=== PATIENT | male | born 1985 | race Caucasian/White ===

== ENCOUNTER 2018-08-23 23:06 | Emergency (ER) | payer SELFPAY ==
[2018-08-24 00:04] LABS: Absolute Lymphocytes (CBC) 3.3 K/uL (0.7-4.9); Absolute Monocytes 0.8 K/uL (0.1-1.3); Absolute Neutrophil 5.4 K/uL (1.8-8.0); Basophils % 0.8 % (0-1.3); Eosinophils % 1.4 % (0-4.4); Hematocrit 45.8 % (39.6-49.0); Lymphocytes % 34.1 % (15.3-44.8); MPV 7.9 fL (7.6-11.3); Monocytes % 8.3 % (3.3-12.3); RBC Red Blood Cell Count 5.19 M/uL (4.33-5.43)
[2018-08-24] MEDS ORDERED: NA CHLORIDE 0.9% 1,000 ML ONE (00:04)
[2018-08-24 00:07] LABS: Protime INR 1.05
[2018-08-24 00:30] LABS: ALT/SGPT 59 U/L (12-78); AST/SGOT 24 U/L (15-37); Alkaline Phosphatase 85 U/L (45-117); BUN Blood Urea Nitrogen 15 mg/dL (7-18); Bicarbonate 23 mmol/L (21-32); Bilirubin Total 0.3 mg/dL (0.2-1.0); Glucose Level 81 mg/dL (74-106); Potassium 3.6 mmol/L (3.5-5.1); Protein, Total 7.4 g/dL (6.4-8.2); Sodium Level 141 mmol/L (136-145)
--- NOTE | 2018-08-24 00:41 | EDPHYS ---
Physician Documentation [facility] Name: Omar Lieberman Age: 33 yrs Sex: Male : 1985 Arrival Date: 08/23/2018 Time: 23:06 Bed 4 Private MD: ED Physician Jesus Alberto Chester HPI: 08/24 00:20 This 33 yrs old Male presents to ER via EMS with complaints of Anxiety. cm 00:20 The patient presents to the emergency department with anxiety. Onset: The cm symptoms/episode began/occurred 2 day(s) ago. Past psychiatric history: Prior diagnosis: depression, Psychiatric medications include: Klonipin. Associated signs and symptoms: Pertinent positives; anxiety. Severity of symptoms: At their worst the symptoms were mild in the emergency department the symptoms are unchanged. The patient has experienced similar episodes in the past, a few times. Historical: - Allergies: 08/23 23:18 No Known Allergies; lp1 - Home Meds: 23:18 Klonopin 2 mg Oral tab 1 tab 3 times per day [Active]; lisinopril 20 mg Oral tab 1 tab lp1 once daily [Active]; - PMHx: 23:18 Anxiety; Hypertension; lp1 - PSHx: 23:18 Knee surgery; lp1 - Immunization history:: Adult Immunizations up to date. - Social history:: Smoking status: Patient uses tobacco products, smokes one pack cigarettes per day. Patient uses street drugs, marijuana. - Ebola Screening: : No symptoms or risks identified at this time. - Family history:: not pertinent. ROS: 08/24 00:20 Constitutional: Negative for fever, chills, and weight loss, Eyes: Negative for injury, cm pain, redness, and discharge, ENT: Negative for injury, pain, and discharge, Neck: Negative for injury, pain, and swelling, Cardiovascular: Negative for chest pain, palpitations, and edema, Respiratory: Negative for shortness of breath, cough, wheezing, and pleuritic chest pain, Abdomen/GI: Negative for abdominal pain, nausea, vomiting, diarrhea, and constipation, Back: Negative for injury and pain, : Negative for injury, bleeding, discharge, and swelling, MS/Extremity: Negative for injury and deformity, Skin: Negative for injury, rash, and discoloration, Neuro: Negative for headache, weakness, numbness, tingling, and seizure, Allergy/Immunology: Negative for hives, rash, and allergies, Endocrine: Negative for neck swelling, polydipsia, polyuria, polyphagia, and marked weight changes, Hematologic/Lymphatic: Negative for swollen nodes, abnormal bleeding, and unusual bruising. Psych: Positive for anxiety. Exam: 00:20 Constitutional: This is a well developed, well nourished patient who is awake, alert, cm and in no acute distress. Head/Face: Normocephalic, atraumatic. Eyes: Pupils equal round and reactive to light, extra-ocular motions intact. Lids and lashes normal. Conjunctiva and sclera are non-icteric and not injected. Cornea within normal limits. Periorbital areas with no swelling, redness, or edema. ENT: Nares patent. No nasal discharge, no septal abnormalities noted. Tympanic membranes are normal and external auditory canals are clear. Oropharynx with no redness, swelling, or masses, exudates, or evidence of obstruction, uvula midline. Mucous membranes moist. Neck: Trachea midline, no thyromegaly or masses palpated, and no cervical lymphadenopathy. Supple, full range of motion without nuchal rigidity, or vertebral point tenderness. No Meningismus. Chest/axilla: Normal chest wall appearance and motion. Nontender with no deformity. No lesions are appreciated. Cardiovascular: Regular rate and rhythm with a normal S1 and S2. No gallops, murmurs, or rubs. Normal PMI, no JVD. No pulse deficits. Respiratory: Lungs have equal breath sounds bilaterally, clear to auscultation and percussion. No rales, rhonchi or wheezes noted. No increased work of breathing, no retractions or nasal flaring. Abdomen/GI: Soft, non-tender, with normal bowel sounds. No distension or tympany. No guarding or rebound. No evidence of tenderness throughout. Back: No spinal tenderness. No costovertebral tenderness. Full range of motion. Male : Normal genitalia with no discharge or lesions. Skin: Warm, dry with normal turgor. Normal color with no rashes, no lesions, and no evidence of cellulitis. MS/ Extremity: Pulses equal, no cyanosis. Neurovascular intact. Full, normal range of motion. Neuro: Awake and alert, GCS 15, oriented to person, place, time, and situation. Cranial nerves II-XII grossly intact. Motor strength 5/5 in all extremities. Sensory grossly intact. Cerebellar exam normal. Normal gait. 00:20 Psych: Behavior/mood is pleasant, cooperative, Affect is calm, Oriented to Patient has no thoughts/intents to harm self or others. Vital Signs: 08/23 23:16 BP 131 / 64; Pulse 80; Resp 18; Temp 97.6(O); Pulse Ox 100% on R/A; Weight 120.2 kg; lp1 Height 6 ft. 2 in. (187.96 cm); Pain 6/10; 23:30 BP 124 / 71; Pulse 66; Resp 17; Pulse Ox 98% on R/A; lp1 08/24 00:00 BP 128 / 67; Pulse 62; Resp 12; Pulse Ox 96% on R/A; lp1 00:30 BP 125 / 64; Pulse 61; Resp 12; Pulse Ox 97% on R/A; lp1 01:15 BP 130 / 71; Pulse 56; Resp 13; Pulse Ox 96% on R/A; Pain 0/10; lp1 08/23 23:16 Body Mass Index 34.02 (120.20 kg, 187.96 cm) lp1 MDM: 08/23 23:43 Patient medically screened. [facility] 08/24 00:25 Data reviewed: vital signs, nurses notes, lab test result(s), EKG. [facility] 08/23 23:44 Order name: Acetaminophen 08/23 23:44 Order name: Basic Metabolic Panel 08/23 23:44 Order name: CBC with Diff; Complete Time: 00:39 08/23 23:44 Order name: ETOH Level; Complete Time: 00:39 08/23 23:44 Order name: Hepatic Function 08/23 23:44 Order name: PT-INR; Complete Time: 00:39 08/23 23:44 Order name: Ptt, Activated; Complete Time: 00:39 08/23 23:44 Order name: Salicylate; Complete Time: 00:39 08/23 23:44 Order name: Acetaminophen [facility] 08/23 23:44 Order name: Basic Metabolic Panel [facility] 08/23 23:44 Order name: CBC with Diff [facility] 08/23 23:44 Order name: ETOH Level [facility] 08/23 23:44 Order name: Hepatic Function [facility] 08/23 23:44 Order name: EKG; Complete Time: 23:45 08/23 23:44 Order name: EKG - Nurse/Tech; Complete Time: 23:48 08/23 23:44 Order name: IV Saline Lock; Complete Time: 23:48 08/23 23:44 Order name: Labs collected and sent; Complete Time: 23:48 08/23 23:44 Order name: PT-INR [facility] 08/23 23:44 Order name: Ptt, Activated [facility] 08/23 23:44 Order name: Salicylate [facility] 08/23 23:44 Order name: Urine Drug Screen [facility] 08/23 23:44 Order name: EKG - Nurse/Tech; Complete Time: 23:48 [facility] 08/23 23:44 Order name: IV Saline Lock; Complete Time: 23:48 [facility] 08/23 23:44 Order name: Labs collected and sent; Complete Time: 23:48 [facility] Administered Medications: 00:00 Drug: NS 0.9% 1000 ml Route: IV; Rate: 1 bolus; Site: left antecubital; rr5 01:00 Follow up: IV Status: Completed infusion; IV Intake: 1000ml lp1 00:33 Drug: Ativan 1 mg Route: IVP; Site: left antecubital; lp1 01:25 Follow up: Response: Marked relief of symptoms lp1 00:33 Drug: KLONopin 1 mg Route: PO; lp1 01:25 Follow up: Response: Marked relief of symptoms lp1 Disposition: 08/24/18 00:40 Discharged to Home. Impression: Anxiety disorder, unspecified. - Condition is Stable. - Discharge Instructions: Panic Attacks, Panic Attacks, [id number]. - Prescriptions for Klonopin 1 mg Oral Tablet - take 1 tablet by ORAL route 3 times per day As needed; 30 tablet. - Medication Reconciliation Form, Thank You Letter, Antibiotic Education, Prescription Opioid Use form. - Follow up: Private Physician; When: 2 - 3 days; Reason: Recheck today's complaints, Continuance of care, Re-evaluation by your physician. - Problem is new. - Symptoms have improved. Signatures: Dispatcher [employer] EDJesus Alberto Garcia MD MD cha Ballard, Brenda, RN RN bb Katie Alex, RN RN lp1 Van Gotti RN RN rr5 Corrections: (The following items were deleted from the chart) 05/01 23:48 23:44 Urine Dipstick-Ancillary ordered. cm lp1 08/24 01:48 00:40 08/24/2018 00:40 Discharged to Home. Impression: Anxiety disorder, unspecified. lp1 Condition is Stable. Discharge Instructions: Panic Attacks, Panic Attacks, Soxy-[id number]. Prescriptions for Klonopin 1 mg Oral Tablet - take 1 tablet by ORAL route 3 times per day As needed; 30 tablet. and Forms are Medication Reconciliation Form, Thank You Letter, Antibiotic Education, Prescription Opioid Use. Follow up: Private Physician; When: 2 - 3 days; Reason: Recheck today's complaints, Continuance of care, Re-evaluation by your physician. Problem is new. Symptoms have improved. cm
--- NOTE | 2018-08-24 00:41 | ER ---
Nurse's Notes [facility] Name: Omar Lieberman Age: 33 yrs Sex: Male : 1985 Arrival Date: 08/23/2018 Time: 23:06 Bed 4 Private MD: Diagnosis: Anxiety disorder, unspecified Presentation: 08/23 23:14 Presenting complaint: EMS states: Called out for patient feeling like everything is lp1 closing in on him, anxious, chest pain; Hx of anxiety, states being without Klonopin for 2 days due to financial reasons, states "I feel like I might have a seizure"; Patient states having seizure when without medication. Transition of care: patient was not received from another setting of care. Onset of symptoms was August 23, 2018 at 21:30. Risk Assessment: Do you want to hurt yourself or someone else? Patient reports no desire to harm self or others. Initial Sepsis Screen: Does the patient meet any 2 criteria? No. Patient's initial sepsis screen is negative. Does the patient have a suspected source of infection? No. Patient's initial sepsis screen is negative. Care prior to arrival: None. 23:14 Method Of Arrival: EMS: [facility] lp1 23:14 Acuity: SEAN 3 lp1 Historical: - Allergies: 23:18 No Known Allergies; lp1 - Home Meds: 23:18 Klonopin 2 mg Oral tab 1 tab 3 times per day [Active]; lisinopril 20 mg Oral tab 1 tab lp1 once daily [Active]; - PMHx: 23:18 Anxiety; Hypertension; lp1 - PSHx: 23:18 Knee surgery; lp1 - Immunization history:: Adult Immunizations up to date. - Social history:: Smoking status: Patient uses tobacco products, smokes one pack cigarettes per day. Patient uses street drugs, marijuana. - Ebola Screening: : No symptoms or risks identified at this time. - Family history:: not pertinent. Screenin:19 Abuse screen: Denies threats or abuse. Denies injuries from another. Nutritional lp1 screening: No deficits noted. Tuberculosis screening: No symptoms or risk factors identified. Fall Risk None identified. Assessment: 23:18 General: Appears uncomfortable, Behavior is anxious. Pain: Complains of pain in chest. lp1 Neuro: Level of Consciousness is awake, alert, obeys commands, Oriented to person, place, time, situation, Pupils are PERRLA, Reports photophobia. Cardiovascular: Patient's skin is warm and dry. Respiratory: Respiratory effort is even, unlabored, Breath sounds are clear bilaterally. GI: Abdomen is obese. : No signs and/or symptoms were reported regarding the genitourinary system. EENT: No signs and/or symptoms were reported regarding the EENT system. Derm: Skin is pink, warm \\T\\ dry. Musculoskeletal: Circulation, motion, and sensation intact. 23:20 Reassessment: O2 2L NC applied per patient comfort. lp1 23:45 Reassessment: Patient is alert, oriented x 3, equal unlabored respirations, skin lp1 warm/dry/pink. Patient states "I feel like I'm not breathing fast anymore; Patient states feeling better. Patient states symptoms have improved. 08/24 01:00 General: Behavior is calm, cooperative. Neuro: Level of Consciousness is awake, alert, lp1 obeys commands, Gait is steady. Respiratory: Respiratory effort is even, unlabored. Derm: Skin is pink, warm \\T\\ dry. 01:31 Reassessment: Patient calling for ride. lp1 Vital Signs: 08/23 23:16 BP 131 / 64; Pulse 80; Resp 18; Temp 97.6(O); Pulse Ox 100% on R/A; Weight 120.2 kg; lp1 Height 6 ft. 2 in. (187.96 cm); Pain 6/10; 23:30 BP 124 / 71; Pulse 66; Resp 17; Pulse Ox 98% on R/A; lp1 08/24 00:00 BP 128 / 67; Pulse 62; Resp 12; Pulse Ox 96% on R/A; lp1 00:30 BP 125 / 64; Pulse 61; Resp 12; Pulse Ox 97% on R/A; lp1 01:15 BP 130 / 71; Pulse 56; Resp 13; Pulse Ox 96% on R/A; Pain 0/10; lp1 08/23 23:16 Body Mass Index 34.02 (120.20 kg, 187.96 cm) lp1 ED Course: 08/23 23:06 Patient arrived in ED. ds1 23:13 Katie Alex, RN is Primary Nurse. lp1 23:16 Triage completed. lp1 23:16 Arm band placed on right wrist. lp1 23:20 Patient has correct armband on for positive identification. Placed in gown. Bed in low lp1 position. Call light in reach. Side rails up X2. histologic aide on. Pulse ox on. NIBP on. 23:20 EKG done, by ED staff. lp1 23:25 Inserted saline lock: 20 gauge in left antecubital area, using aseptic technique. Blood rr5 collected. 23:43 Jesus Alberto Chester MD is Attending Physician. [facility] 08/24 01:29 No provider procedures requiring assistance completed. IV discontinued, No lp1 redness/swelling at site. Pressure dressing applied. Administered Medications: 00:00 Drug: NS 0.9% 1000 ml Route: IV; Rate: 1 bolus; Site: left antecubital; rr5 01:00 Follow up: IV Status: Completed infusion; IV Intake: 1000ml lp1 00:33 Drug: Ativan 1 mg Route: IVP; Site: left antecubital; lp1 01:25 Follow up: Response: Marked relief of symptoms lp1 00:33 Drug: KLONopin 1 mg Route: PO; lp1 01:25 Follow up: Response: Marked relief of symptoms lp1 Intake: 01:00 IV: 1000ml; Total: 1000ml. lp1 Outcome: 00:40 Discharge ordered by . cm 01:29 Discharged to home lp1 01:29 Condition: good 01:29 Discharge instructions given to patient, Instructed on discharge instructions, follow up and referral plans. medication usage, Demonstrated understanding of instructions, follow-up care, medications, Prescriptions given X 1. 01:48 Patient left the ED. lp1 Signatures: Jesus Alberto Chester MD MD cha Sanford, Demi ds1 Katie Alex, RN RN lp1 Van Gotti, RN RN rr5
[2018-08-24] MEDS ORDERED: clonazePAM 0.5 MG TAB ONE (00:42)
[2018-08-24] MEDS ORDERED: LORazepam 2 MG/ML VIAL ONE (00:42)
[2018-08-24 01:14] LABS: Bilirubin Direct < 0.1 mg/dL (0-0.2)
--- NOTE | 2018-08-24 07:13 | EKG ---
Test Date: 2018-08-23 Test Time: 23:13:20 Roofing Layer: RR MEASUREMENT RESULTS: Intervals: Rate: 58 IL: 164 QRSD: 140 QT: 444 QTc: 435 [place]: P: 20 IL: 164 QRS: 56 T: 28 INTERPRETIVE STATEMENTS: Sinus bradycardia Right bundle branch block Abnormal ECG Compared to ECG 08/06/2002 18:27:00 Sinus rhythm no longer present Electronically Signed On 08-24-18 07:12:17 CDT by Aniket Garcia
== END 2018-08-24 01:48 | disposition home or self-care (01) ==
LOC: ER 23:06
DX: F41.9 Anxiety disorder, unspecified (principal); I10 Essential (primary) hypertension; F17.210 Nicotine dependence, cigarettes, uncomplicated
CPT/HCPCS: 36415; 80048; 80076; 80320; 80329; 85025; 85610; 85730; 93005; 96361; 96374; 99285

== ENCOUNTER 2019-02-21 00:05 | Emergency (ER) | payer SELFPAY ==
[2019-02-21] MEDS ORDERED: KETOROLAC 30 MG/ML INJ ONE (01:16)
[2019-02-21] MEDS ORDERED: HYDROCODONE/APAP 7.5/325 MG TAB ONE (01:16)
[2019-02-21] MEDS ORDERED: CYCLOBENZAPRINE 10 MG TAB ONE (01:16)
--- NOTE | 2019-02-21 02:36 | EDPHYS ---
Physician Documentation [facility] Name: Omar Lieberman Age: 33 yrs Sex: Male : 1985 Arrival Date: 02/21/2019 Time: 00:07 Bed 25 Private MD: ED Physician Amador Cameron HPI: 02/21 01:10 This 33 yrs old Male presents to ER via Ambulatory with complaints of Fall cp Injury. 01:10 Details of fall: The patient fell from a height, down approximately 9 stairs, and cp struck a concrete surface. Onset: The symptoms/episode began/occurred today. 01:10 Associated injuries: The patient sustained upper back injury, pain, injury to the low cp back, pain, left knee, decreased range of motion, painful injury, swelling. Historical: - Allergies: 00:19 No Known Allergies; tl1 - Home Meds: 00:19 Klonopin 2 mg Oral tab 1 tab 3 times per day [Active]; lisinopril 20 mg Oral tab 1 tab tl1 once daily [Active]; - PMHx: 00:19 Anxiety; Hypertension; WPW; tl1 - PSHx: 00:19 cardiac ablasion; Knee surgery; tl1 - Immunization history:: Adult Immunizations unknown. - Social history:: Smoking status: Patient uses tobacco products, smokes one pack cigarettes per day. Patient uses alcohol, weekly. street drugs, marijuana. - Ebola Screening: : Patient negative for fever greater than or equal to 101.5 degrees Fahrenheit, and additional compatible Ebola Virus Disease symptoms Patient denies exposure to infectious person Patient denies travel to an Ebola-affected area in the 21 days before illness onset. ROS: 01:15 Constitutional: Negative for body aches, chills, fever, poor PO intake. cp 01:15 Eyes: Negative for injury, pain, redness, and discharge. cp 01:15 ENT: Negative for drainage from ear(s), ear pain, sore throat, difficulty swallowing, difficulty handling secretions. 01:15 Neck: Negative for pain with movement, pain at rest, stiffness. 01:15 Cardiovascular: Negative for chest pain. 01:15 Respiratory: Negative for cough, shortness of breath, wheezing. 01:15 Abdomen/GI: Negative for abdominal pain, nausea, vomiting, and diarrhea. 01:15 Back: Positive for pain at rest, pain with movement, of the thoracic area and lumbar area. 01:15 MS/extremity: Positive for pain, of the left knee. 01:15 Neuro: Negative for altered mental status, headache, loss of consciousness. 01:15 All other systems are negative. Exam: 01:25 Constitutional: The patient appears in no acute distress, alert, awake, non-toxic, well cp developed, well nourished. 01:25 Head/Face: Normocephalic, atraumatic. cp 01:25 Eyes: Periorbital structures: appear normal, Conjunctiva: normal, no exudate, no injection, Lids and lashes: appear normal, bilaterally. 01:25 ENT: External ear(s): are unremarkable, Nose: is normal, Mouth: Lips: moist, Oral mucosa: moist, Posterior pharynx: Airway: no evidence of obstruction, patent. 01:25 Neck: C-spine: vertebral tenderness, is not appreciated, crepitus, is not appreciated, ROM/movement: is normal, is supple, without pain, no range of motions limitations, no nuchal rigidity. 01:25 Chest/axilla: Inspection: normal, Palpation: is normal, no crepitus, no tenderness. 01:25 Cardiovascular: Rate: tachycardic, Rhythm: regular. 01:25 Respiratory: the patient does not display signs of respiratory distress, Respirations: normal, no use of accessory muscles, no retractions, no splinting, no tachypnea, labored breathing, is not present, Breath sounds: are clear throughout, no decreased breath sounds, no stridor, no wheezing. 01:25 Abdomen/GI: Inspection: abdomen appears normal, Bowel sounds: active, all quadrants, Palpation: abdomen is soft and non-tender, in all quadrants, voluntary guarding, is not appreciated. 01:25 Back: pain, that is moderate, of the thoracic area, lumbar area and right mid back, ROM is normal. 01:25 Musculoskeletal/extremity: Joints: All joints are normal except the left knee displays pain at rest, painful range of motion, swelling, tenderness. 01:25 Skin: no rash present. 01:25 Neuro: Orientation: to person, place \T\ time. Mentation: is normal. Vital Signs: 00:19 BP 121 / 94; Pulse 106; Resp 20; Temp 98.3; Pulse Ox 100% on R/A; Weight 113.4 kg; tl1 Height 6 ft. 2 in. (187.96 cm); Pain 9/10; 02:57 BP 119 / 89; Pulse 91; Resp 17; Temp 98.5(O); Pulse Ox 98% on R/A; Pain 4/10; tl1 00:19 Body Mass Index 32.10 (113.40 kg, 187.96 cm) tl1 Willow Coma Score: 00:20 Eye Response: spontaneous(4). Verbal Response: oriented(5). Motor Response: obeys tl1 commands(6). Total: 15. Trauma Score (Adult): 00:20 Eye Response: spontaneous(1); Verbal Response: oriented(1); Motor Response: obeys tl1 commands(2); Systolic BP: > 89 mm Hg(4); Respiratory Rate: 10 to 29 per min(4); Hope Score: 15; Trauma Score: 12 Procedures: 02:55 Splinting: Splint applied to left knee using knee immobilizer, applied by nurse. cp Examined by me, post splint application: neurovascular intact, Patient tolerated well. Crutch training provided to patient and/or family. Return demonstration given. MDM: 00:33 Patient medically screened. cp 01:15 Differential diagnosis: contusion, fracture, sprain, ligament injury. cp 02:25 Data reviewed: vital signs, nurses notes, radiologic studies, plain films. cp 02:25 Test interpretation: by ED physician or midlevel provider: plain radiologic studies, cp xrays of thoracic spine negative for fracture, xrays of lumbar spine negative for fracture and xrays of left knee negative for fracture. Counseling: I had a detailed discussion with the patient and/or guardian regarding: the historical points, exam findings, and any diagnostic results supporting the discharge/admit diagnosis, radiology results, the need for outpatient follow up, a orthopedic surgeon, to return to the emergency department if symptoms worsen or persist or if there are any questions or concerns that arise at home. Response to treatment: the patient's symptoms have markedly improved after treatment, and as a result, I will discharge patient. ED course: VSS. Pain improved with meds. Left knee placed in immobilizer and patient instructed to f/u with ortho. Will discharge to home for continued monitoring. 02/21 01:05 Order name: XRAY Knee LEFT 3 view cp 02/21 01:05 Order name: XRAY Lumbar Spine (3 Views) cp 02/21 01:05 Order name: XRAY Thoracic Spine (W/swimmers) cp 02/21 01:11 Order name: Misc. Order: give hydrocodone and flexeril if patient has ride; Complete cp Time: 01:21 02/21 01:43 Order name: Knee Immobilizer; Complete Time: 02:55 bb 02/21 02:45 Order name: Crutches; Complete Time: 02:55 cp Administered Medications: 01:20 Drug: Hydrocodone-Acetaminophen (7.5 mg-325 mg) 1 tabs {Note: RASS:0.} Route: PO; tr5 01:48 Follow up: Response: Pain is decreased tr5 01:20 Drug: TORadol 60 mg Route: IM; Site: left deltoid; tr5 01:47 Follow up: Response: Pain is decreased tr5 01:20 Drug: Flexeril 10 mg Route: PO; tr5 01:47 Follow up: Response: Pain is decreased tr5 Disposition: 07:18 Co-signature as Attending Physician, Amador Cameron MD I agree with the assessment and tw4 plan of care. Disposition: 02/21/19 02:35 Discharged to Home. Impression: Pain in left knee, Fall on and from stairs and steps, Pain in thoracic spine, Low back pain. - Condition is Stable. - Discharge Instructions: Back Pain, Adult, Knee Pain, Back Exercises. - Prescriptions for Ibuprofen 800 mg Oral Tablet - take 1 tablet by ORAL route every 8 hours As needed take with food; 30 tablet. Cyclobenzaprine 10 mg Oral Tablet - take 1 tablet by ORAL route every 8 hours As needed no driving while taking medication; 20 tablet. Tramadol 50 mg Oral Tablet - take 1 tablet by ORAL route every 8 hours as needed. no driving while taking medication; 20 tablet. - Medication Reconciliation Form, Thank You Letter, Antibiotic Education, Prescription Opioid Use form. - Follow up: Jj Cotto MD; When: 2 - 3 days; Reason: left knee pain. - Problem is new. - Symptoms have improved. Signatures: Dispatcher [employer] EDAlyssa Medina RN RN bb Rosalba Frausto RN RN tl1 Jesus Alberto Lam PA PA cp Amador Cameron MD MD tw4 Atif Black RN RN tr5 Corrections: (The following items were deleted from the chart) 02:57 02:35 02/21/2019 02:35 Discharged to Home. Impression: Pain in left knee; Fall on and tl1 from stairs and steps; Pain in thoracic spine; Low back pain. Condition is Stable. Forms are Medication Reconciliation Form, Thank You Letter, Antibiotic Education, Prescription Opioid Use. Follow up: Jj Cotto; When: 2 - 3 days; Reason: left knee pain. Problem is new. Symptoms have improved. cp
--- NOTE | 2019-02-21 02:36 | ER ---
Nurse's Notes [facility] Name: Omar Lieberman Age: 33 yrs Sex: Male : 1985 Arrival Date: 02/21/2019 Time: 00:07 Bed 25 Private MD: Diagnosis: Pain in left knee;Fall on and from stairs and steps;Pain in thoracic spine;Low back pain Presentation: 02/21 00:16 Presenting complaint: Patient states: I was walking down some steps and I slipped and tl1 my left knee went behind me and I slid down about 9 steps. This happened about an hour ago and I had to walk to the store to get a ride to the hospital. Care prior to arrival: None. Mechanism of Injury: Fall down steps. Trauma event details: Injury occurred in the [facility], Injury occurred: at home. Injury occurred: February 21, 2019 Injury occurred at: 23:00. 00:16 Acuity: SEAN 4 tl1 00:16 Method Of Arrival: Ambulatory tl1 02:56 Transition of care: patient was not received from another setting of care. Onset of tl1 symptoms was February 21, 2019. Risk Assessment: Do you want to hurt yourself or someone else? Patient reports no desire to harm self or others. Initial Sepsis Screen: Does the patient meet any 2 criteria? No. Patient's initial sepsis screen is negative. Does the patient have a suspected source of infection? No. Patient's initial sepsis screen is negative. Trauma Activation: Not Applicable Physician: ED Physician; Name: ; Notified At: ; Arrived At: Physician: General Surgeon; Name: ; Notified At: ; Arrived At: Physician: Radiology; Name: ; Notified At: ; Arrived At: Physician: Respiratory; Name: ; Notified At: ; Arrived At: Physician: Lab; Name: ; Notified At: ; Arrived At: Historical: - Allergies: 00:19 No Known Allergies; tl1 - Home Meds: 00:19 Klonopin 2 mg Oral tab 1 tab 3 times per day [Active]; lisinopril 20 mg Oral tab 1 tab tl1 once daily [Active]; - PMHx: 00:19 Anxiety; Hypertension; WPW; tl1 - PSHx: 00:19 cardiac ablasion; Knee surgery; tl1 - Immunization history:: Adult Immunizations unknown. - Social history:: Smoking status: Patient uses tobacco products, smokes one pack cigarettes per day. Patient uses alcohol, weekly. street drugs, marijuana. - Ebola Screening: : Patient negative for fever greater than or equal to 101.5 degrees Fahrenheit, and additional compatible Ebola Virus Disease symptoms Patient denies exposure to infectious person Patient denies travel to an Ebola-affected area in the 21 days before illness onset. Screenin:30 Abuse screen: Denies threats or abuse. Nutritional screening: No deficits noted. tr5 Tuberculosis screening: No symptoms or risk factors identified. Fall Risk None identified. Assessment: 00:30 General: Appears uncomfortable, Behavior is cooperative, appropriate for age. Pain: tr5 Complains of pain in left knee Pain does not radiate. Pain currently is 9 out of 10 on a pain scale. Quality of pain is described as aching, Pain began 1 hour ago. Neuro: Level of Consciousness is awake, alert, obeys commands, Oriented to person, place, time, Gluing Crew Leader are equal bilaterally Moves all extremities. Cardiovascular: Heart tones present Capillary refill < 3 seconds. Respiratory: Airway is patent Respiratory effort is even, unlabored, Respiratory pattern is regular, symmetrical. GI: No signs and/or symptoms were reported involving the gastrointestinal system. : No signs and/or symptoms were reported regarding the genitourinary system. EENT: No signs and/or symptoms were reported regarding the EENT system. Derm: No signs and/or symptoms reported regarding the dermatologic system. Musculoskeletal: No signs and/or symptoms reported regarding the musculoskeletal system. Vital Signs: 00:19 BP 121 / 94; Pulse 106; Resp 20; Temp 98.3; Pulse Ox 100% on R/A; Weight 113.4 kg; tl1 Height 6 ft. 2 in. (187.96 cm); Pain 9/10; 02:57 BP 119 / 89; Pulse 91; Resp 17; Temp 98.5(O); Pulse Ox 98% on R/A; Pain 4/10; tl1 00:19 Body Mass Index 32.10 (113.40 kg, 187.96 cm) tl1 [place] Coma Score: 00:20 Eye Response: spontaneous(4). Verbal Response: oriented(5). Motor Response: obeys tl1 commands(6). Total: 15. Trauma Score (Adult): 00:20 Eye Response: spontaneous(1); Verbal Response: oriented(1); Motor Response: obeys tl1 commands(2); Systolic BP: > 89 mm Hg(4); Respiratory Rate: 10 to 29 per min(4); Hope Score: 15; Trauma Score: 12 ED Course: 00:07 Patient arrived in ED. cl3 00:18 Triage completed. tl1 00:20 Arm band placed on right wrist. tl1 00:28 Jesus Alberto Lam PA is PHCP. cp 00:28 Amador Cameron MD is Attending Physician. cp 00:30 Bed in low position. Call light in reach. Side rails up X 1. tr5 01:09 Atif Black, RN is Primary Nurse. tr5 01:21 Patient moved to radiology via wheelchair. tr5 02:16 XRAY Knee LEFT 3 view In Process Unspecified. EDMS 02:16 XRAY Lumbar Spine (3 Views) In Process Unspecified. EDMS 02:16 XRAY Thoracic Spine (W/swimmers) In Process Unspecified. EDMS 02:34 Jj Cotto MD is Referral Physician. cp 02:55 No provider procedures requiring assistance completed. Patient did not have IV access tl1 during this emergency room visit. Crutch training done. Knee immobilizer applied on left knee. Administered Medications: 01:20 Drug: Hydrocodone-Acetaminophen (7.5 mg-325 mg) 1 tabs {Note: RASS:0.} Route: PO; tr5 01:48 Follow up: Response: Pain is decreased tr5 01:20 Drug: TORadol 60 mg Route: IM; Site: left deltoid; tr5 01:47 Follow up: Response: Pain is decreased tr5 01:20 Drug: Flexeril 10 mg Route: PO; tr5 01:47 Follow up: Response: Pain is decreased tr5 Outcome: 02:35 Discharge ordered by MD. cp 02:56 Discharged to home via wheelchair, with crutches, with friend. tl1 02:56 Condition: stable 02:56 Discharge instructions given to patient, Instructed on discharge instructions, follow up and referral plans. medication usage, crutch walking, Demonstrated understanding of instructions, follow-up care, medications, crutch walking, Prescriptions given X 3. 02:57 Patient left the ED. tl1 Signatures: Dispatcher [employer] EDRosalba Argueta RN RN tl1 Jesus Alberto Lam PA PA cp Rodriguez, Tommie, RN RN tr5 Odalys Almonte cl3 Corrections: (The following items were deleted from the chart) 01:20 01:20 Hydrocodone-Acetaminophen (7.5 mg-325 mg) 1 tabs PO tr5 tr5
[2019-02-21 03:15] VITALS: BP 119/89; TEMP 98.5; O2SAT 98
--- NOTE | 2019-02-21 06:41 | RAD REPORT ---
EXAM DESCRIPTION: RAD - Knee Left 3 View - 02/21/2019 2:15 am CLINICAL HISTORY: slip and fall on stairs;Pain COMPARISON: No comparisons FINDINGS: No acute fracture or dislocation seen. Small suprapatellar joint effusion.
--- NOTE | 2019-02-21 06:42 | RAD REPORT ---
EXAM DESCRIPTION: RAD - Spine Thoracic W/Swimmers - 02/21/2019 2:15 am CLINICAL HISTORY: slip and fall on stairs;Pain Radiculopathy COMPARISON: No comparisons FINDINGS: The thoracic spine vertebral body heights and disc spaces are largely maintained. No acute compression fracture. No significant malalignment. IMPRESSION: Negative study.
--- NOTE | 2019-02-21 06:43 | RAD REPORT ---
EXAM DESCRIPTION: RAD - Lumbar Spine 3 Views - 02/21/2019 2:15 am CLINICAL HISTORY: slip and fall on stairs;Pain Radiculopathy COMPARISON: No comparisons FINDINGS: Vertebral body heights appear maintained. No compression fracture noted. Mild disc thinnin g is seen lower lumbar levels. No spondylolysis or spondylolisthesis. IMPRESSION: No acute lumbar spine abnormality. Mild lower lumbar spondylosis.
== END 2019-02-21 02:57 | disposition home or self-care (01) ==
LOC: ER 00:05
DX: M54.6 Pain in thoracic spine (principal); M54.5 Low back pain; M25.562 Pain in left knee; W10.9XXA Fall (on) (from) unspecified stairs and steps, initial encounter; Y93.9 Activity, unspecified; Y92.9 Unspecified place or not applicable; I10 Essential (primary) hypertension; F41.9 Anxiety disorder, unspecified; F17.210 Nicotine dependence, cigarettes, uncomplicated
CPT/HCPCS: 72072; 72100; 96372; 99284

== ENCOUNTER 2022-04-14 17:58 | Emergency (ER) | payer OTHER, SELFPAY ==
[2022-04-14] MEDS ORDERED: propofoL 1,000 MG/100 ML VIAL IV ONE ×3 (18:08→23:00)
[2022-04-14 18:35] LABS: Absolute Lymphocytes (CBC) 2.9 K/uL (0.7-4.9); Hematocrit 48.9 % (39.6-49.0); Lymphocytes % 8.4 % (15.3-44.8); MCV 93.3 fL (80-100); MPV 7.6 fL (7.6-11.3); RBC Red Blood Cell Count 5.23 M/uL (4.33-5.43)
[2022-04-14 18:44] LABS: Protime INR 1.08
[2022-04-14 18:51] LABS: Arterial Blood Carboxyhemoglob 1.2 % (0-1.5); Blood Gas Oxyhemoglobin 78.2 % (94-97); Blood O2 Saturation 80.5 % (92-98.5)
[2022-04-14 18:57] LABS: Barbiturates POSITIVE (NEGATIVE); Benzodiazepines POSITIVE (NEGATIVE); Cocaine NEGATIVE (NEGATIVE); METHAMPHETAM NEGATIVE (NEGATIVE); Methadone NEGATIVE (NEGATIVE); Opiates POSITIVE (NEGATIVE); Phencyclidine NEGATIVE (NEGATIVE); THC Cannibis POSITIVE (NEGATIVE)
[2022-04-14 19:00] LABS: Blood Morphology Comment NOT SEEN (NOT SEEN); Platelet Estimate INCR; Toxic Granulation 1+
[2022-04-14 19:23] LABS: Albumin 3.6 g/dL (3.4-5.0); Alkaline Phosphatase 73 U/L (45-117); BUN Blood Urea Nitrogen 20 mg/dL (7-18); Bicarbonate 24 mmol/L (21-32); Bilirubin Total 0.2 mg/dL (0.2-1.0); Glomerular Filtration Rate 52 ml/min (=/>90); Glucose Level 216 mg/dL (74-106); Lipase 202 U/L (73-393); NT PRO-BNP 720 pg/mL (<125); Protein, Total 7.1 g/dL (6.4-8.2); Sodium Level 135 mmol/L (136-145); Troponin High Sensitivity 3354.6 pg/mL (<58.9)
[2022-04-14 19:25] LABS: Bilirubin Direct < 0.1 mg/dL (0-0.2)
[2022-04-14 19:27] LABS: ALT/SGPT 575 U/L (16-61); AST/SGOT 715 U/L (15-37)
[2022-04-14 19:28] LABS: Creatine Phosphokinase > 14000 U/L (39-308); Magnesium 2.5 mg/dL (1.6-2.4)
[2022-04-14] MEDS ORDERED: NA CHLORIDE 0.9% 1,000 ML ONE ×2 (19:36→20:11)
[2022-04-14] MEDS ORDERED: ALBUTEROL 2.5 MG/3 ML NEB SOL ONE ×2 (20:10→21:07)
[2022-04-14] MEDS ORDERED: INSULIN -REGULAR HUMAN 50 UNIT/0.5 ML ML ONE (20:11)
[2022-04-14] MEDS ORDERED: SODIUM BICARB 50 MEQ/50ML VIAL ONE (20:11)
[2022-04-14] MEDS ORDERED: CALCIUM GLUCONATE 1 GM IVPB 1 GM/50 ML BAG IV ONE (20:11)
[2022-04-14] MEDS ORDERED: D10W 250 ML IV ONE (20:12)
--- NOTE | 2022-04-14 20:25 | RAD REPORT ---
EXAM DESCRIPTION: CT - Head Brain Wo Cont - 04/14/2022 8:17 pm CLINICAL HISTORY: Alteration of awareness/confusion COMPARISON: None TECHNIQUE: Computed axial tomography of the head was obtained. IV contrast was not requested. All CT scans are performed using dose optimization technique as appropriate and may include automated exposure control or mA/KV adjustment according to patient size. FINDINGS: An intracranial bleed is not seen . The ventricles are normal in caliber. No extra-axial fluid collection is noted. No significant hypodensity within the brain is seen IMPRESSION: No acute intracranial abnormality is seen. If patient's symptoms persist MRI of the bra in would be recommended.
--- NOTE | 2022-04-14 20:29 | ER ---
Nurse's Notes [facility] Name: Omar Lieberman Age: 36 yrs Sex: Male : 1985 Arrival Date: 04/14/2022 Time: 18:06 Bed 4 Private MD: Diagnosis: Acute respiratory failure;Hyperkalemia;Rhabdomyolysis;Subsequent non-ST elevation (NSTEMI) myocardial infarction;Polysubstance abuse Presentation: 04/14 18:15 Care prior to arrival: Oral intubation, 8.0 et tube measures 21 at the teeth. Activity kr3 prior to arrival: incontinence, unresponsive. 18:19 Chief complaint: EMS states: toned out to patients aunt's home where he lives, upon kr3 arrival patient was having agonal respiration at 4/min. patient has hx of drug abuse with no specific drug of choice. given a total of 8 of Narcan with an increase of respirations after dosing, also given 10mg of reglan, 30mg total of etomidate in route, 75mg of rocuronium. noticeable pulse in abdomen. initial HR was in the 80's and then 120's after intubation. Initial Sepsis Screen: Does the patient meet any 2 criteria? No. Patient's initial sepsis screen is negative. Does the patient have a suspected source of infection? No. Patient's initial sepsis screen is negative. Risk Assessment: Do you want to hurt yourself or someone else? Unable to obtain. Onset of symptoms was April 14, 2022. 18:19 Method Of Arrival: EMS: [facility] kr3 18:58 Acuity: SEAN 1 iw 20:33 Coronavirus screen: At this time, the client does not indicate any symptoms associated as6 with coronavirus-19. Ebola Screen: No symptoms or risks identified at this time. Triage Assessment: 18:36 General: Appears obese, unkempt, Behavior is unresponsive. Pain: Unable to use pain kr3 scale. Patient is unresponsive. Historical: - Allergies: 20:29 No Known Allergies; as6 - PMHx: 18:36 Anxiety; Hypertension; WPW; kr3 - Immunization history:: Adult Immunizations unknown. - Social history:: Smoking status: unknown. - Unable to obtain history due to: altered mental status, patient is on ventilator. Screenin:33 [facility] ED Fall Risk Assessment (Adult) Score/Fall Risk Level 0 - 2 = Low Risk. Abuse as6 screen: Denies threats or abuse. Denies injuries from another. Nutritional screening: No deficits noted. Tuberculosis screening: No symptoms or risk factors identified. Assessment: 19:37 General: sister [phone] mother [phone]. as6 19:39 Respiratory: Ventilator assessment: ET Tube: 8.0 Ventilator Mode: Assist Control (AC) as6 Tidal Volume: 600 Respiratory Rate: 20 FiO2: 100%. PEEP: 8 HOB > 30 degrees. 19:40 Neuro: [place] Agitation-Sedation Scale (RASS): -2 Light sedation. as6 Vital Signs: 18:19 BP 168 / 103; Pulse 124; Resp 21; Temp 97.9; Pulse Ox 89% on ETT vent; kr3 18:50 Weight 128.37 kg; kr3 19:38 BP 122 / 84; Pulse 88; Resp 21 A; Temp 99.1(C); Pulse Ox 100% on 100% FiO2 ETT vent; as6 20:35 BP 104 / 85; Pulse 87; Resp 20 A; Temp 99.4(C); Pulse Ox 99% on 100% FiO2 ETT vent; as6 21:26 BP 122 / 82; Pulse 85; Resp 20 A; Temp 99.7(C); Pulse Ox 100% on 100% FiO2 ETT vent; as6 22:01 BP 120 / 86; Pulse 85; Resp 20 A; Temp 99.7(C); Pulse Ox 100% on 100% FiO2 ETT vent; as6 22:47 BP 119 / 79; Pulse 86; Resp 20 A; Temp 100.0(C); Pulse Ox 100% on 100% FiO2 ETT vent; as6 ED Course: 18:06 Patient arrived in ED. bd 18:09 Cricket Bardales MD is Attending Physician. rt 18:15 Arm band placed on Patient placed in an exam room, on a stretcher. kr3 18:18 XRAY CXR (1 view) In Process Unspecified. EDMS 18:19 Victorina Goldman RN is Primary Nurse. kr3 18:35 Triage completed. kr3 19:07 Corona cath inserted, using sterile technique, 16 Fr., by caser up. Maintain EMS IV. kr3 Dressing intact. Site clean \T\ dry. 19:07 Maintain EMS IV. Gauge \T\ site: 20 G LAC. kr3 19:21 Attending Physician role handed off by Cricket Bardales MD sd2 19:21 Rosanna Palomo MD is Attending Physician. sd2 20:19 CT Chest For PE Angio In Process Unspecified. EDMS 20:19 CT Head Brain wo Cont In Process Unspecified. EDMS 20:[address] [facility], spoke with Gypsy. wm 20:32 SARS-COV-2 Antigen Rapid Sent. as6 20:33 Placed in gown. Bed in low position. Call light in reach. Side rails up X2. Client as6 placed on continuous cardiac and pulse oximetry monitoring. NIBP monitoring applied. Warm blanket given. 21:08 Pt accepted for transfer to [facility] RM: [id number] Friedman. wm 21:27 Primary Nurse role handed off by Victorina Goldman, FLOYD kd3 21:27 Rosa Malone, FLOYD is Primary Nurse. kd3 22:02 Inserted saline lock: 22 gauge in right antecubital area, using aseptic technique. as6 23:08 No provider procedures requiring assistance completed. Patient transferred, IV remains as6 in place. Administered Medications: 18:20 Drug: Propofol 5 mcg/kg/min Route: IV; Rate: calculated rate; Site: left antecubital; kr3 18:30 Follow up: Response: RASS: Restless (+1); Rate change 15 mcg/kg/min kr3 18:40 Follow up: Response: RASS: Restless (+1); Rate change 25 mcg/kg/min kr3 18:45 Follow up: Response: RASS: Restless (+1); Rate change 30 mcg/kg/min kr3 23:08 Follow up: Response: No adverse reaction; RASS: Light sedation (-2); IV Status: as6 Infusion continued upon transfer; IV Intake: 50ml 19:35 Drug: NS 0.9% 1000 ml Route: IV; Rate: 1 bolus; Site: left antecubital; as6 21:56 Follow up: Response: No adverse reaction; IV Status: Completed infusion; IV Intake: as6 1000ml 20:57 Drug: Calcium Gluconate 1 grams Route: IVPB; Infused Over: 60 mins; Site: right kd3 antecubital; 21:57 Follow up: Response: No adverse reaction; IV Status: Completed infusion; IV Intake: 19mrby0 20:58 Drug: D50W 50 ml Route: IVP; Site: right antecubital; kd3 21:56 Follow up: Response: No adverse reaction as6 20:58 Drug: Insulin Regular Human 10 units {Co-Signature: as6 (Je Owen RN).} Route: kd3 IVP; Site: right antecubital; 21:57 Follow up: Response: No adverse reaction as6 20:58 Drug: Sodium Bicarbonate 1 amp Route: IVP; Site: right antecubital; kd3 21:57 Follow up: Response: No adverse reaction as6 20:59 Drug: NS 0.9% 1000 ml Route: IV; Rate: 1 bolus; Site: left antecubital; kd3 21:56 Follow up: Response: No adverse reaction; IV Status: Completed infusion; IV Intake: as6 1000ml 21:20 Drug: Albuterol 10 mg Route: Inhalation; as6 21:57 Follow up: Response: No adverse reaction as6 21:24 Drug: Zosyn (piperacillin-tazobactam) 4.5 grams Route: IVPB; Infused Over: 60 mins; as6 Site: right antecubital; 21:57 Follow up: Response: No adverse reaction; IV Status: Completed infusion; IV Intake: as6 100ml 21:56 Drug: vancoMYCIN 15 mg/kg Route: IVPB; Site: right antecubital; as6 23:08 Follow up: Response: No adverse reaction; IV Status: Infusion continued upon transfer; as6 IV Intake: 100ml Medication: 20:33 VIS not applicable for this client. as6 Intake: 21:56 IV: 1000ml; Total: 1000ml. as6 21:56 IV: 1000ml; Total: 2000ml. as6 21:57 IV: 50ml; Total: 2050ml. as6 21:57 IV: 100ml; Total: 2150ml. as6 23:08 IV: 100ml; Total: 2250ml. as6 23:08 IV: 50ml; Total: 2300ml. as6 Outcome: 20:28 ER care complete, transfer ordered by MD. amato2 23:09 Transferred by ground EMS to [facility], Transfer form completed. as6 X-rays sent w/ patient. 23:09 critical 23:09 Instructed on the need for admit. 23:09 Patient left the ED. as6 Signatures: Dispatcher [employer] EDHumera Lundy Irene, RN Halle Olson Ashby, RN RN as6 Rosa Malone RN RN kd3 Rosanna Palomo MD MD sd2 Victorina Goldman RN RN kr3 Cricket Bardales MD MD rt Je Owen RN as6 Corrections: (The following items were deleted from the chart) 18:58 18:20 Propofol 5 mcg/kg/min IV at calculated rate in right antecubital kr3 kr3 18:58 18:25 Response: RASS: Restless (+1); Rate change 10 mcg/kg/min kr3 kr3 19:02 18:40 Response: RASS: Restless (+1); Rate change 30 mcg/kg/min kr3 kr3 19:14 18:19 Acuity: SEAN 3 kr3 kr3
--- NOTE | 2022-04-14 20:29 | EDPHYS ---
Physician Documentation [facility] Name: Omar Lieberman Age: 36 yrs Sex: Male : 1985 Arrival Date: 04/14/2022 Time: 18:06 Bed 4 Private MD: ED Physician Rosanna Palomo HPI: 04/14 18:46 This 36 yrs old Male presents to ER via EMS with complaints of Unresponsive. rt 18:46 The patient presents with decreased responsiveness. Onset: The symptoms/episode rt began/occurred at an unknown time. History limited due to unresponsive, intubated patient. Patient reportedly has a history of drug use. The patient was noted to be in his usual state of health this morning. At about 2, the patient's family noted that he was somewhat incoherent. They later found the patient to be unresponsive. EMS reports agonal respirations. Reported hypoxia at that time as well. After total of 8 mg of Narcan, the patient had improvement of his respiratory rate, was still obtunded. The decision was made at that point to intubate the patient for airway protection. No further history could be obtained, symptoms are severe in severity, no other reported aggravating or alleviating factors.. Historical: - Allergies: 20:29 No Known Allergies; as6 - PMHx: 18:36 Anxiety; Hypertension; WPW; kr3 - Immunization history:: Adult Immunizations unknown. - Social history:: Smoking status: unknown. - Unable to obtain history due to: altered mental status, patient is on ventilator. ROS: 18:46 Unable to obtain ROS due to altered mental status, patient is on ventilator. rt Exam: 18:46 Head/Face: Normocephalic, atraumatic. rt 18:46 Neck: Trachea midline, no thyromegaly or masses palpated, and no cervical lymphadenopathy. Supple, full range of motion without nuchal rigidity, or vertebral point tenderness. No Meningismus. Chest/axilla: Normal chest wall appearance and motion. Nontender with no deformity. No lesions are appreciated. 18:46 Abdomen/GI: Soft, non-tender, with normal bowel sounds. No distension or tympany. No guarding or rebound. No evidence of tenderness throughout. Skin: Warm, dry with normal turgor. Normal color with no rashes, no lesions, and no evidence of cellulitis. MS/ Extremity: Pulses equal, no cyanosis. Neurovascular intact. Full, normal range of motion. 18:46 Constitutional: The patient appears Unresponsive, intubated 18:46 Eyes: pupils constricted, midline. 18:46 ENT: ET tube in place, OP moist. 18:46 Cardiovascular: tachycardic, regular rhythm, heart sounds normal. 18:46 ECG was reviewed by the Attending Physician. 18:46 Respiratory: Ventilated breath sounds bilaterally, equal. 18:46 Neuro: Chemically paralyzed, GCS 3 T. 18:46 Psych: not assessable. Vital Signs: 18:19 BP 168 / 103; Pulse 124; Resp 21; Temp 97.9; Pulse Ox 89% on ETT vent; kr3 18:50 Weight 128.37 kg; kr3 19:38 BP 122 / 84; Pulse 88; Resp 21 A; Temp 99.1(C); Pulse Ox 100% on 100% FiO2 ETT vent; as6 20:35 BP 104 / 85; Pulse 87; Resp 20 A; Temp 99.4(C); Pulse Ox 99% on 100% FiO2 ETT vent; as6 21:26 BP 122 / 82; Pulse 85; Resp 20 A; Temp 99.7(C); Pulse Ox 100% on 100% FiO2 ETT vent; as6 22:01 BP 120 / 86; Pulse 85; Resp 20 A; Temp 99.7(C); Pulse Ox 100% on 100% FiO2 ETT vent; as6 22:47 BP 119 / 79; Pulse 86; Resp 20 A; Temp 100.0(C); Pulse Ox 100% on 100% FiO2 ETT vent; as6 MDM: 18:11 Patient medically screened. rt 04/14 18:10 Order name: BMP; Complete Time: 22:40 rt 04/14 18:10 Order name: CBC with Diff; Complete Time: 19:10 rt 04/14 18:10 Order name: CPK; Complete Time: 22:40 rt 04/14 18:10 Order name: Hepatic Function; Complete Time: 22:40 rt 04/14 18:10 Order name: Lipase; Complete Time: 22:40 rt 04/14 18:10 Order name: Magnesium; Complete Time: 22:40 rt 04/14 18:10 Order name: NT PRO-BNP; Complete Time: 22:40 rt 04/14 18:10 Order name: PT-INR; Complete Time: 18:50 rt 04/14 18:10 Order name: Ptt, Activated; Complete Time: 18:50 rt 04/14 18:10 Order name: Troponin HS; Complete Time: 22:40 rt 04/14 18:11 Order name: Acetaminophen; Complete Time: 22:40 rt 04/14 18:11 Order name: ETOH Level; Complete Time: 19:31 rt 04/14 18:11 Order name: Salicylate; Complete Time: 19:48 rt 04/14 18:10 Order name: CT Chest For PE Angio; Complete Time: 20:38 rt 04/14 18:10 Order name: XRAY CXR (1 view); Complete Time: 20:38 rt 04/14 18:10 Order name: CT Head Brain wo Cont; Complete Time: 20:26 rt 04/14 18:11 Order name: Urine Drug Screen; Complete Time: 19:10 rt 04/14 18:52 Order name: ABG Arterial Blood Gas; Complete Time: 19:10 EDMS 04/14 19:01 Order name: Manual Differential; Complete Time: 19:10 EDMS 04/14 20:24 Order name: ABG; Complete Time: 22:40 sd2 04/14 20:27 Order name: SARS-COV-2 Antigen Rapid; Complete Time: 20:54 wm 04/14 18:10 Order name: EKG; Complete Time: 18:11 rt 04/14 18:10 Order name: Cardiac monitoring; Complete Time: 19:36 rt 04/14 18:10 Order name: EKG - Nurse/Tech; Complete Time: 19:36 rt 04/14 18:10 Order name: IV Saline Lock; Complete Time: 19:41 rt 04/14 18:10 Order name: Labs collected and sent; Complete Time: 19:42 rt 04/14 18:10 Order name: O2 Per Protocol; Complete Time: 19:42 rt 04/14 18:10 Order name: O2 Sat Monitoring; Complete Time: 19:42 rt 04/14 18:11 Order name: EKG - Nurse/Tech; Complete Time: 19:36 rt 04/14 18:11 Order name: IV Saline Lock; Complete Time: 19:41 rt 04/14 18:11 Order name: Labs collected and sent; Complete Time: 19:41 rt 04/14 18:11 Order name: Urine Dipstick-Ancillary (obtain specimen); Complete Time: 20:40 rt EC:46 Rate is 123 beats/min. Rhythm is regular, Sinus tachycardia with No ectopy, Right rt bundle branch block. QRS [place] is Normal. MS interval is normal. QRS interval is normal. QT interval is prolonged at 589 msec. No Q waves. Administered Medications: 18:20 Drug: Propofol 5 mcg/kg/min Route: IV; Rate: calculated rate; Site: left antecubital; kr3 18:30 Follow up: Response: RASS: Restless (+1); Rate change 15 mcg/kg/min kr3 18:40 Follow up: Response: RASS: Restless (+1); Rate change 25 mcg/kg/min kr3 18:45 Follow up: Response: RASS: Restless (+1); Rate change 30 mcg/kg/min kr3 23:08 Follow up: Response: No adverse reaction; RASS: Light sedation (-2); IV Status: as6 Infusion continued upon transfer; IV Intake: 50ml 19:35 Drug: NS 0.9% 1000 ml Route: IV; Rate: 1 bolus; Site: left antecubital; as6 21:56 Follow up: Response: No adverse reaction; IV Status: Completed infusion; IV Intake: as6 1000ml 20:57 Drug: Calcium Gluconate 1 grams Route: IVPB; Infused Over: 60 mins; Site: right [facility] antecubital; 21:57 Follow up: Response: No adverse reaction; IV Status: Completed infusion; IV Intake: [id number] 20:58 Drug: D50W 50 ml Route: IVP; Site: right antecubital; kd3 21:56 Follow up: Response: No adverse reaction as6 20:58 Drug: Insulin Regular Human 10 units {Co-Signature: as6 (Je Owen RN).} Route: kd3 IVP; Site: right antecubital; 21:57 Follow up: Response: No adverse reaction as6 20:58 Drug: Sodium Bicarbonate 1 amp Route: IVP; Site: right antecubital; kd3 21:57 Follow up: Response: No adverse reaction as6 20:59 Drug: NS 0.9% 1000 ml Route: IV; Rate: 1 bolus; Site: left antecubital; kd3 21:56 Follow up: Response: No adverse reaction; IV Status: Completed infusion; IV Intake: as6 1000ml 21:20 Drug: Albuterol 10 mg Route: Inhalation; as6 21:57 Follow up: Response: No adverse reaction as6 21:24 Drug: Zosyn (piperacillin-tazobactam) 4.5 grams Route: IVPB; Infused Over: 60 mins; as6 Site: right antecubital; 21:57 Follow up: Response: No adverse reaction; IV Status: Completed infusion; IV Intake: as6 100ml 21:56 Drug: vancoMYCIN 15 mg/kg Route: IVPB; Site: right antecubital; as6 23:08 Follow up: Response: No adverse reaction; IV Status: Infusion continued upon transfer; as6 IV Intake: 100ml Disposition Summary: 04/14/22 20:28 Transfer Ordered Transfer Location: [facility] sd2 Reason: Higher level of care sd2 Condition: Critical sd2 Problem: new sd2 Symptoms: are unchanged sd2 Accepting Physician: Idalia(04/14/22 23:09) as6 Diagnosis - Acute respiratory failure sd2 - Hyperkalemia sd2 - Rhabdomyolysis sd2 - Subsequent non-ST elevation (NSTEMI) myocardial infarction sd2 - Polysubstance abuse sd2 Forms: - Medication Reconciliation Form sd2 - SBAR form sd2 Signatures: Dispatcher [employer] EDJaylon Cuello, RHODA-C [employer] APPRAISER-Cla1 Je Owen RN RN as6 Rosa Malone RN RN kd3 Rsoanna Palomo MD MD sd2 Victorina Goldman RN RN kr3 Cricket Bardales MD MD rt Je Owen RN as6 Corrections: (The following items were deleted from the chart) 21:23 20:28 TBD sd2 sd2 23:09 21:23 Hotze sd2 as6
--- NOTE | 2022-04-14 20:33 | RAD REPORT ---
EXAM DESCRIPTION: CT - Chest For Pe Angio - 04/14/2022 8:17 pm CLINICAL HISTORY: Hypoxia/shortness of breath COMPARISON: 2017 TECHNIQUE: Dynamically enhanced axial 3 mm thick images of the chest were obtained during administra tion of <100> mL Isovue 370 IV contrast. Coronal and oblique reconstruction images were generated and reviewed. Exam utilizes a protocol for optimal evaluation of pulmonary arterial tree. Maximum intensity projections 3D imaging was utilized All CT scans are performed using dose optimization technique as appropriate and may include automated exposure control or mA/KV adjustment according to patient size. FINDINGS: A pulmonary embolus is not seen. A thoracic aortic aneurysm is not noted. A pleural effusion is not seen. A pericardial effusion is not seen. Right middle lobe, right lower lobe and left lower lobe atelectasis Feeding tube in the gastric fundus. Endotracheal tube with its tip 4.5 centimeters above the jovany IMPRESSION: Negative for a pulmonary embolism. Right middle lobe, right lower lobe and left lower lobe atelectasis
--- NOTE | 2022-04-14 20:34 | RAD REPORT ---
EXAM DESCRIPTION: Rhonda Single View04/14/2022 6:16 pm CLINICAL HISTORY: Chest pain COMPARISON: 2016 FINDINGS: An endotracheal tube has its tip 1.5 above top of the aortic arch. Bilateral atelectasis. Bilateral volume loss The heart is normal size
[2022-04-14 20:36] LABS: Arterial Blood Carboxyhemoglob 0.9 % (0-1.5); Blood Gas Oxyhemoglobin 90.4 % (94-97); Blood O2 Saturation 92.6 % (92-98.5)
[2022-04-14 20:45] LABS: SARS-CoV-2 Antigen Rapid Res Negative (Negative)
[2022-04-14] MEDS ORDERED: PIPERACIL/TAZO 4.5 GM VIAL IV ONE (21:12)
[2022-04-14] MEDS ORDERED: VANCOMYCIN 1 GM/VIAL ONE (21:12)
[2022-04-14] MEDS ORDERED: NA CHLORIDE 0.9% 100 ML IV ONE (21:12)
[2022-04-14] MEDS ORDERED: NA CHLORIDE 0.9% 500 ML ONE (21:13)
[2022-04-14 23:46] VITALS: O2SAT 100
[2022-04-14 23:48] VITALS: BP 119/79; TEMP 100
== END 2022-04-14 23:09 | disposition short-term general hospital (02) ==
LOC: ER 17:58
DX: J96.01 Acute respiratory failure with hypoxia (principal); I22.2 Subsequent non-ST elevation (NSTEMI) myocardial infarction; I21.9 Acute myocardial infarction, unspecified; E87.5 Hyperkalemia; M62.82 Rhabdomyolysis; F19.10 Other psychoactive substance abuse, uncomplicated; I10 Essential (primary) hypertension
CPT/HCPCS: 36415; 70450; 71045; 71275; 80048; 80076; 80307; 80320; 80329; 82550; 82805; 83690; 83735; 83880; 84484; 85025; 85610; 85730; 87811; 93005; 94002; J0610; J1815; J2704; J3370; J7030; J7040; J7613; Q9967